=== PATIENT | female | born 1990 | race African-American/Black ===

== ENCOUNTER 2017-09-02 07:31 | Emergency (ER) | payer OTHER ==
[2017-09-02 07:40] VITALS: BP 136/74; PULSE 83; TEMP 98.4; BMI 39.4
--- NOTE | 2017-09-02 07:45 | PDOC ---
History of Present Illness - General Chief Complaint: Sore Throat Stated Complaint: THROAT PAIN History Source: Patient Exam Limitations: No Limitations - History of Present Illness Initial Comments: 09/02/17 08:11 This 27 yr old female with symptoms of an URI, sore throat, cough, hoarseness, nasal congestion for two days. Her young child had a cold 2 weeks ago and was treated for viral infection she has not taken anything for this except vitamin C Past History - Past Medical History Allergies/Adverse Reactions: Allergies Allergy/AdvReac Type Severity Reaction Status Date / Time No Known Allergies Allergy Verified 09/02/17 07:35 Home Medications: Ambulatory Orders Ascorbic Acid [Vitamin C] 500 mg PO DAILY 09/02/17 COPD: No - Suicide/Smoking/Psychosocial Hx Smoking History: Never smoked Have you smoked in the past 12 months: No Information on smoking cessation initiated: No Hx Alcohol Use: No Drug/Substance Use Hx: No Substance Use Type: None Review of Systems - Review of Systems Able to Perform ROS?: Yes HEENTM: Yes: Throat Pain. No: Throat Swelling Respiratory: Yes: See HPI, Cough. No: Wheezing, Productive cough All Other Systems: Reviewed and Negative *Physical Exam - Vital Signs Last Vital Signs Temp Pulse Resp BP Pulse Ox 98.4 F 83 16 136/74 100 09/02/17 07:35 09/02/17 07:35 09/02/17 07:35 09/02/17 07:35 09/02/17 07:35 - Physical Exam HEENT: positive: TMs Normal, Pharynx Normal, Muffled/Hoarse voice, Rhinorrhea, Sinus Tenderness. negative: Tonsillar Exudate, Tonsillar Erythema Neck: positive: Trachea midline Respiratory/Chest: positive: Lungs Clear Cardiovascular: positive: Regular Rate Gastrointestinal/Abdominal: positive: Flat, Soft Extremity: positive: Normal Inspection Integumentary: positive: Dry, Warm Neurologic: positive: Fully Oriented Medical Decision Making - Medical Decision Making 09/02/17 08:15 A/P: 27 yr old female with viral URI symptoms -exam -treated with OTC meds -discharge. *DC/Admit/Observation/Transfer Diagnosis at time of Disposition: Viral upper respiratory infection - Discharge Dispostion Disposition: HOME Condition at time of disposition: Good Admit: No - Referrals Referrals: Elisha Ogden MD [Primary Care Provider] - - Patient Instructions Printed Discharge Instructions: DI for Viral Upper Respiratory Infection -- Adult Additional Instructions: Discharge instructions 1. Please follow up with your primary physician within the next few days and explain that you have been seen here in the Emergency Room. 2. If you experience any worsening of symptoms, please return to the ER 3. Rest, afrin for 3 days only, wash hands frequently, do not share cups, take nasal decongestant in morning. 4. Drink plenty of water - Post Discharge Activity Forms/Work/School Notes: Back to Work
== END 2017-09-02 08:02 | disposition home or self-care (01) ==
LOC: JER 07:31
DX: J06.9 Acute upper respiratory infection, unspecified (principal)
CPT/HCPCS: 99282-25